=== PATIENT | female | born 1960 | race Caucasian/White ===

== ENCOUNTER 2018-06-21 21:42 | Emergency (ER) | payer OTHER ==
[~2018-06-21] VITALS: Ht 160 cm; Wt 51.3 kg
[2018-06-21 23:28] LABS: APPEARANCE,URINE CLOUDY (CLEAR); BILIRUBIN,URINE NEGATIVE (NEGATIVE); BLOOD, URINE 3+ Ery/uL (NEGATIVE); COLOR,URINE YELLOW (YELLOW); KETONES,URINE NEGATIVE (NEGATIVE); LEUKOCYTE ESTERASE ,URINE 3+ (NEGATIVE); NITRITE, URINE NEGATIVE (NEGATIVE); PROTEIN,URINE 1+ mg/dl (NEGATIVE); UGLUCOSE NEGATIVE (NEGATIVE); UROBILINOGEN,URINE 0.2 EU/dL (0.2)
[2018-06-21] MEDS ORDERED: LIDOCAINE HCL/PF 1% 30 ML VIAL TP ONE (23:30)
--- NOTE | 2018-06-21 23:35 | NUR ---
MAGDI[facility] FROM HOME RA 98%, ACCOMPANIED BY FRIEND. C/O PAIN ON RLQ/LLQ RADIATING TO BACK AND SWOLLEN ELBOW WITH PAIN AT SCALE OF 8/10. NO ACUTE RESP DISTRESS. AFEBRILE. VSS. PLACED GOWNED. DELROY HOWELL AT BEDSIDE SPOKE AND ASSESSED THE PATIENT. POC PROVIDED BY DELROY.
[2018-06-21 23:41] LABS: BACTERIA,URINE Moderate /HPF (None Seen); RBC,URINE 21-50 /HPF (0-2); SQUAMOUS EPITHELIAL CELL,UR Moderate /HPF (None Seen); WBC,URINE 21-50 /HPF (0-3)
[2018-06-21] MEDS ORDERED: LIDOCAINE MPF 1%-EPI 1:200,000 30 ML VIAL IJ ONE (23:41)
[2018-06-22] MEDS ORDERED: MORPHINE SULFATE INJ 2 MG/ML DISP.SYRIN IV ONE (00:30)
[2018-06-22] MEDS ORDERED: KETOROLAC TROMETHAMINE INJ 30 MG/ML VIAL IV ONE (00:30)
[2018-06-22] MEDS ORDERED: ONDANSETRON HCL/PF 4 MG/2 ML VIAL IV ONE (00:30)
[2018-06-22] MEDS ORDERED: IV NS 0.9% 1,000 ML BAG IV ONE (00:30)
[2018-06-22] MEDS ORDERED: KETOROLAC TROMETHAMINE INJ 30 MG/ML VIAL ONE (00:45)
[2018-06-22] MEDS ORDERED: ONDANSETRON HCL/PF 4 MG/2 ML VIAL ONE (00:46)
[2018-06-22] MEDS ORDERED: MORPHINE SULFATE INJ 4 MG/ML DISP.SYRIN ONE (00:46)
[2018-06-22 00:48] LABS: BASOPHILS % (AUTO) 0.3 % (0.0-2.0); EOSINOPHILS % (AUTO) 0.1 % (0.0-6.0); HEMATOCRIT 43 % (33-45); HEMOGLOBIN 14.2 g/dL (11.5-14.8); LYMPHOCYTES # (AUTO) 1.6 /CMM (0.8-4.8); LYMPHOCYTES % (AUTO) 13.2 % (20.0-44.0); MEAN CORPUSCULAR HGB CONC 33 g/dl (31.0-36.0); MEAN CORPUSCULAR VOLUME 95 fL (82-100); MONOCYTES # (AUTO) 0.8 /CMM (0.1-1.30); MONOCYTES % (AUTO) 6.2 % (2.0-12.0); NEUTROPHILS # (AUTO) 9.8 /CMM (1.8-8.9); NEUTROPHILS % (AUTO) 80.2 % (43.0-81.0); PLATELET COUNT (AUTO) 332 /CMM (150-450); RDW COEFFICIENT OF VARIATION 13.1 (11.5-15.0); RED BLOOD CELL COUNT(AUTO) 4.48 MIL/uL (4.0-5.2); WHITE BLOOD COUNT (AUTO) 12.3 K/uL (4.3-11.0)
[2018-06-22 01:05] LABS: CALCIUM, SERUM 9.8 mg/dL (8.5-10.1); CREATININE 0.9 mg/dL (0.6-1.3); POTASSIUM 4.1 mmol/L (3.5-5.1)
[2018-06-22 01:09] LABS: ALBUMIN 4.4 g/dL (3.4-5.0); BILIRUBIN,DIRECT 0.1 mg/dL (0.0-0.2); BILIRUBIN,TOTAL 0.4 mg/dL (0.2-1.0); TOTAL PROTEIN, SERUM 8.2 g/dL (6.4-8.2)
[2018-06-22] MEDS ORDERED: CEFTRIAXONE 1 G VIAL ONE (01:17)
[2018-06-22] MEDS ORDERED: NITROFURANTOIN/NITROFURAN MAC 100 MG CAPSULE ONE (01:17)
[2018-06-22] MEDS ORDERED: CEFTRIAXONE 1 G in IV D5W 50 ML IV ONE (01:30)
[2018-06-22] MEDS ORDERED: NITROFURANTOIN/NITROFURAN MAC 100 MG CAPSULE PO ONE (01:30)
[2018-06-22 01:51] VITALS: BP 121/75
== END 2018-06-22 01:52 | disposition home or self-care (01) ==
LOC: ER 21:45
DX: M70.21 Olecranon bursitis, right elbow (principal); M19.021 Primary osteoarthritis, right elbow; N12 Tubulo-interstitial nephritis, not specified as acute or chronic; Z87.442 Personal history of urinary calculi; Z98.890 Other specified postprocedural states; Z88.3 Allergy status to other anti-infective agents; Y93.89 Activity, other specified
CPT/HCPCS: 36415; 73130; 74176; 80048; 80076; 81001; 83690; 85025; 87077; 87086; 87186; 96365; 96375; 99284; A4606; J0696; J1885; J2270; J2405; J3490 ×2; J7030; J7060; Z7610; 81000-TC

== ENCOUNTER 2024-08-07 15:42 | Emergency (ER) | payer OTHER ==
[~2024-08-07] VITALS: Ht 170.2 cm; Wt 53.5 kg
[2024-08-07] MEDS: ONDANSETRON HCL/PF 4 MG/2 ML VIAL IV ONE (17:00)
[2024-08-07] MEDS: MORPHINE SULFATE INJ 2 MG/ML DISP.SYRIN IV ONE (17:05)
[2024-08-07 17:06] LABS: BASOPHILS % (AUTO) 0.2 % (0.0-2.0); EOSINOPHILS % (AUTO) 0.4 % (0.0-6.0); HEMATOCRIT 36 % (33-45); HEMOGLOBIN 12.3 g/dL (11.5-14.8); LYMPHOCYTES # (AUTO) 1.5 K/uL (0.8-4.8); LYMPHOCYTES % (AUTO) 12.8 % (20.0-44.0); MEAN CORPUSCULAR HEMOGLOBIN 32 PG (26.0-33.0); MEAN CORPUSCULAR HGB CONC 34 g/dl (31.0-36.0); MEAN CORPUSCULAR VOLUME 92 fL (82-100); MONOCYTES # (AUTO) 0.7 K/uL (0.1-1.30); MONOCYTES % (AUTO) 6.1 % (2.0-12.0); NEUTROPHILS # (AUTO) 9.3 K/uL (1.8-8.9); NEUTROPHILS % (AUTO) 80.5 % (43.0-81.0); PLATELET COUNT (AUTO) 279 K/uL (150-450); RED CELL DISTRIBUTION WIDTH 12.9 % (11.5-15.0); WHITE BLOOD COUNT (AUTO) 11.5 K/uL (4.3-11.0)
[2024-08-07 17:14] LABS: CALCIUM, SERUM 8.6 mg/dL (8.5-10.1); CREATININE 0.8 mg/dL (0.6-1.3)
[2024-08-07 17:21] LABS: ALBUMIN 3.7 g/dL (3.4-5.0); BILIRUBIN,DIRECT 0.1 mg/dL (0.0-0.2); BILIRUBIN,TOTAL 0.3 mg/dL (0.2-1.0); INR 1.03 (0.91-1.10); PARTIAL THROMBOPLASTIN TIME 28.8 SEC (24.3-34.3); PROTHROMBIN TIME 10.9 SECS (9.2-11.1); TOTAL PROTEIN, SERUM 6.7 g/dL (6.4-8.2)
[2024-08-07] MEDS ORDERED: ONDANSETRON HCL/PF 4 MG/2 ML VIAL ONE (17:21)
[2024-08-07] MEDS ORDERED: MORPHINE SULFATE INJ 4 MG/ML DISP.SYRIN ONE (17:22)
[2024-08-07] MEDS ORDERED: OXYC-128 PO (19:36)
[2024-08-07] MEDS ORDERED: IBUP-1490 PO (19:36)
[2024-08-07] MEDS ORDERED: ONDA4TAB5 PO (19:58)
[2024-08-07 20:08] VITALS: BP 110/74; TEMP 98; O2SAT 98
== END 2024-08-07 20:09 | disposition home or self-care (01) ==
LOC: ER 15:43
DX: S32.592A Other specified fracture of left pubis, initial encounter for closed fracture (principal); E78.5 Hyperlipidemia, unspecified; R51.9 Headache, unspecified; M54.2 Cervicalgia; N20.0 Calculus of kidney; Z87.442 Personal history of urinary calculi; W11.XXXA Fall on and from ladder, initial encounter; Y93.89 Activity, other specified; Y92.89 Other specified places as the place of occurrence of the external cause; Y99.8 Other external cause status
CPT/HCPCS: 99285; 72125; 96374; 96375; 73080; 71250; 70450; 74176; 85025; 80048; 80076; 36415; 85730; J2270; J2405; L0172

== ENCOUNTER → 2024-08-08 | Emergency (ER) | payer OTHER ==
[~2024-08-08] VITALS: Ht 170.2 cm; Wt 53.5 kg
[~2024-08-08] MED LIST: HYDROCODONE/APAP 5/325MG TABLET ONE; IBUP-1490 PO; ONDA4TAB5 PO; OXYC-128 PO
[2024-08-08] MEDS: HYDROCODONE/APAP 5/325MG TABLET PO ONE (20:57)
[2024-08-08 21:38] VITALS: BP 125/70; TEMP 98.8; O2SAT 98
== END ==
LOC: ER 17:21
DX: S32.599A Other specified fracture of unspecified pubis, initial encounter for closed fracture (principal); R33.9 Retention of urine, unspecified; F17.200 Nicotine dependence, unspecified, uncomplicated; F90.9 Attention-deficit hyperactivity disorder, unspecified type; Z98.890 Other specified postprocedural states; X58.XXXA Exposure to other specified factors, initial encounter; Y93.89 Activity, other specified; Y92.89 Other specified places as the place of occurrence of the external cause; Y99.8 Other external cause status

== ENCOUNTER 2025-08-19 14:05 | Inpatient (IN) | payer OTHER ==
[~2025-08-19] VITALS: Ht 160 cm; Wt 51.3 kg
[~2025-08-19 14:05] MED LIST changes: -HYDROCODONE/APAP 5/325MG TABLET ONE
[2025-08-19] MEDS ORDERED: MORPHINE SULFATE INJ 4 MG/ML DISP.SYRIN ONE (14:58)
[2025-08-19] MEDS ORDERED: ONDANSETRON HCL/PF 4 MG/2 ML VIAL ONE (14:58)
[2025-08-19] MEDS: ONDANSETRON HCL/PF 4 MG/2 ML VIAL IVP ONE (15:11)
[2025-08-19] MEDS: IV NS 0.9% 1,000 ML BAG IV ONE ×2 (15:16→17:17)
[2025-08-19] MEDS: MORPHINE SULFATE INJ 2 MG/ML DISP.SYRIN IV ONE (15:16)
[2025-08-19 15:29] LABS: APPEARANCE,URINE CLEAR (CLEAR); BLOOD, URINE NEGATIVE Ery/uL (NEGATIVE); LEUKOCYTE ESTERASE ,URINE 1+ (NEGATIVE); NITRITE, URINE NEGATIVE (NEGATIVE); UGLUCOSE NEGATIVE (NEGATIVE)
[2025-08-19 15:32] LABS: PLATELET COUNT (AUTO) 344 K/uL (150-450); RED BLOOD CELL COUNT(AUTO) 4.21 MIL/uL (4.0-5.2); RED CELL DISTRIBUTION WIDTH 12.9 % (11.5-15.0); WHITE BLOOD COUNT (AUTO) 9.0 K/uL (4.3-11.0)
[2025-08-19 15:49] LABS: CALCIUM, SERUM 9.2 mg/dL (8.5-10.1); CREATININE 0.7 mg/dL (0.6-1.3); SODIUM SERUM 140.0 mmol/L (136-145); UREA NITROGEN, BLOOD 16.0 mg/dL (7-18)
[2025-08-19 15:52] LABS: ASPARTATE AMINOTRANSFERASE 12.0 U/L (15-37); TOTAL PROTEIN, SERUM 7.3 g/dL (6.4-8.2)
[2025-08-19 15:53] LABS: ADD URINE CULTURE YES; SQUAMOUS EPITHELIAL CELL,UR Few /HPF (None Seen)
[2025-08-19 16:30] VITALS: O2SAT 98
[2025-08-19] MEDS ORDERED: ATOR40TA PO (16:54)
[2025-08-19] MEDS ORDERED: BUPR-319 PO (16:54)
[2025-08-19] MEDS ORDERED: DUTA0.5C37 PO (16:54)
[2025-08-19] MEDS ORDERED: MINO2.5T PO (16:54)
[2025-08-19] MEDS ORDERED: GABA-532 PO (16:54)
[2025-08-19] MEDS ORDERED: FREM225A IJ (16:54)
[2025-08-19] MEDS ORDERED: hydrALAZINE HCL IV 20 MG VIAL IV PRN (17:00)
[2025-08-19] MEDS ORDERED: DOSING PER PHARMACY-CEFEPIME IVPB XX PRN (17:00)
[2025-08-19] MEDS ORDERED: PIPERACI/TAZO 3.375GM/D5W 50ML PB IV ONE (17:16)
[2025-08-19] MEDS: PIPERACILLIN /TAZOBACTAM 3.375 G in IV D5W 50 ML IV ONE (17:19)
[2025-08-19 17:26] LABS: INR 0.96 (0.91-1.10)
[2025-08-19] MEDS ORDERED: MIDAZOLAM HCL 2 MG/2ML VIAL ONE (19:55)
[2025-08-19] MEDS ORDERED: FENTANYL PF 100MCG/2ML AMPUL ONE (19:55)
[2025-08-19] MEDS ORDERED: ROCURONIUM BROMIDE 50 MG/5 ML ONE (19:58)
[2025-08-19 20:00] VITALS: BP 144/79; TEMP 99.3; O2SAT 99
[2025-08-19] MEDS ORDERED: LIDOCAINE 1%-EPI 1:100,000 20 ML VIAL ONE (20:22)
[2025-08-19] MEDS ORDERED: BUPIVACAINE 0.5 % PF 150 MG/30 ML VIAL ONE (20:22)
[2025-08-19] MEDS: ATORVASTATIN 40 MG TABLET PO SCH (22:36)
[2025-08-19] MEDS: MORPHINE SULFATE INJ 2 MG/ML DISP.SYRIN IV PRN (22:37)
[2025-08-19] MEDS: ONDANSETRON HCL/PF 4 MG/2 ML VIAL IVP PRN (22:37)
[2025-08-19] MEDS: CEFEPIME 2 GM in IV D5W 100 ML IV SCH (22:52)
[2025-08-19] MEDS: IV NS 0.9% 1,000 ML IV SCH (22:52)
[2025-08-19] MEDS: GABAPENTIN 300 MG CAPSULE PO SCH (23:20)
[2025-08-20 07:23] LABS: PLATELET COUNT (AUTO) 300 K/uL (150-450); RED BLOOD CELL COUNT(AUTO) 3.95 MIL/uL (4.0-5.2); RED CELL DISTRIBUTION WIDTH 12.5 % (11.5-15.0); WHITE BLOOD COUNT (AUTO) 12.7 K/uL (4.3-11.0)
[2025-08-20 08:00] VITALS: BP 91/55; TEMP 97.5; O2SAT 96
[2025-08-20 08:03] LABS: ASPARTATE AMINOTRANSFERASE 11.0 U/L (15-37); CALCIUM, SERUM 8.5 mg/dL (8.5-10.1); CREATININE 0.5 mg/dL (0.6-1.3); PHOSPHORUS 3.1 mg/dL (2.5-4.9); SODIUM SERUM 137.0 mmol/L (136-145); TOTAL PROTEIN, SERUM 6.5 g/dL (6.4-8.2); UREA NITROGEN, BLOOD 10.0 mg/dL (7-18)
[2025-08-20] MEDS: ACETAMINOPHEN 325 MG TABLET PO PRN (08:22)
[2025-08-20] MEDS: BUPROPION XL 150 MG TAB.ER.24 PO SCH (08:22)
[2025-08-20] MEDS: DUTASTERIDE (0.5 MG) 0.5 MG CAPSULE PO SCH (08:23)
[2025-08-20] MEDS: MINOXIDIL (2.5MG) 2.5 MG TABLET PO SCH (08:34)
[2025-08-20] MEDS: oxyCODONE/APAP (5/325 MG) 1 UDTAB TABLET PO PRN (11:26)
[2025-08-20 16:00] VITALS: BP 99/59; TEMP 97.9; O2SAT 97
[2025-08-20 20:00] VITALS: BP 103/53; TEMP 98.1; O2SAT 96
[2025-08-20] MEDS: HEPARIN SODIUM, PORCINE 5000 UNITS/1 ML VIAL SQ SCH (21:29)
[2025-08-21 07:00] VITALS: BP 107/61; TEMP 98.1; O2SAT 95
[2025-08-21 08:27] LABS: PLATELET COUNT (AUTO) 324 K/uL (150-450); RED BLOOD CELL COUNT(AUTO) 3.92 MIL/uL (4.0-5.2); RED CELL DISTRIBUTION WIDTH 13.1 % (11.5-15.0); WHITE BLOOD COUNT (AUTO) 8.3 K/uL (4.3-11.0)
[2025-08-21 08:45] LABS: CALCIUM, SERUM 8.3 mg/dL (8.5-10.1); CREATININE 0.6 mg/dL (0.6-1.3); PHOSPHORUS 2.7 mg/dL (2.5-4.9); SODIUM SERUM 144.0 mmol/L (136-145); UREA NITROGEN, BLOOD 13.0 mg/dL (7-18)
[2025-08-21] MEDS ORDERED: IV NS 0.9% 1,000 ML IV PRN (09:47)
[2025-08-21 16:00] VITALS: BP 127/69; TEMP 97.7; O2SAT 99
[2025-08-21 20:00] VITALS: BP 124/68; TEMP 98.1; O2SAT 97
[2025-08-22 07:00] VITALS: BP 103/53; TEMP 98.1; O2SAT 97
[2025-08-22 09:43] VITALS: BP 103/53
[2025-08-22] MEDS ORDERED: AMOX-430 PO (11:19)
== END 2025-08-22 12:30 | disposition home or self-care (01) | DRG 399 ==
LOC: ER 14:20 → MED 17:02
PROVIDERS: ADMIT Internal Medicine; ATTEND Internal Medicine
PROC: 0DTJ4ZZ Resection of Appendix, Percutaneous Endoscopic Approach (ICD-10-PCS; principal; 2025-08-19 20:00)
DX: K35.33 Acute appendicitis with perforation, localized peritonitis, and gangrene, with abscess (principal); E78.00 Pure hypercholesterolemia, unspecified; F32.A Depression, unspecified; Z87.442 Personal history of urinary calculi; K38.1 Appendicular concretions; Z88.8 Allergy status to other drugs, medicaments and biological substances; Z79.899 Other long term (current) drug therapy
CPT/HCPCS: 36415; 71045-TC; 80048-TC; 80053-TC; 80076-TC; 81001; 83605-TC; 83690-TC; 83735-TC; 84100-TC; 85025-TC; 85730-TC; 87040-TC; 87086-TC; A4223; G0378; J0692; J1644; J2250; J2270; J2405; J2543; J3010; J3490; J7030; J7040; J7060